=== PATIENT | female | born 1990 | race Caucasian/White ===

== ENCOUNTER 2023-06-28 06:22 | Day surgery (SDC) | payer OTHER, SELFPAY ==
[2023-06-28] VITALS (9 sets, daily range): BP systolic 104–144; BP diastolic 84–100; BMI 28.9
[2023-06-28] MEDS: NORMOSOL-R 1000 IV (10:32)
[2023-06-28] MEDS: Pyridium 200 MG PO (11:29)
[2023-06-28] MEDS: DILAUDID 0.5 MG IV (13:45)
[2023-06-28] MEDS: DILAUDID 2 MG PO (14:45)
== END 2023-06-28 15:25 | disposition home or self-care (01) ==
LOC: SDS 06:22
PROVIDERS: ATTENDING PHYSICIAN Obstetrics & Gynecology
DX: N39.3 Stress incontinence (female) (male) (principal); N36.41 Hypermobility of urethra; N30.10 Interstitial cystitis (chronic) without hematuria
CPT/HCPCS: 57288; C1771

== ENCOUNTER → 2023-10-24 16:41 | Outpatient (REF) | payer OTHER, SELFPAY | LOC: RAD 16:41 | PROVIDERS: ATTENDING PHYSICIAN Obstetrics & Gynecology; FAMILY PHYSICIAN Internal Medicine | DX: R10.2 Pelvic and perineal pain (principal) | CPT/HCPCS: 76830; 76856 ==